=== PATIENT | female | born 1995 | race Caucasian/White ===

== ENCOUNTER 2023-12-14 15:16 | Emergency (ER) | payer MEDICAID ==
[2023-12-14 15:55] LABS: BASOPHILS % (AUTO) 0.3 %; EOSINOPHILS # (AUTO) 0.4 10^3/uL (0.0-0.7); EOSINOPHILS % (AUTO) 5.2 %; HCT - HEMATOCRIT 41.3 % (37.0-47.0); HGB - HEMOGLOBIN 13.6 g/dL (12.0-16.0); LYMPHOCYTES # (AUTO) 0.6 10^3/uL (1.5-3.5); LYMPHOCYTES % (AUTO) 9.1 %; MEAN CORPUSCULAR HEMOGLOBIN 30.2 pg (27.0-31.0); MEAN CORPUSCULAR HGB CONC 32.9 g/dL (32.0-36.0); MEAN CORPUSCULAR VOLUME 91.8 fL (81.0-99.0); MEAN PLATELET VOLUME 10.1 fL (7.9-10.8); MONOCYTES # (AUTO) 0.7 10^3/uL (0.0-1.0); MONOCYTES % (AUTO) 9.7 %; NEUTROPHILS % (AUTO) 75.6 %; PLT - PLATELET COUNT 301 10^3/uL (130-450); RED CELL DISTRIBUTION WIDTH 12.6 % (12.0-15.0); WHITE BLOOD COUNT 6.7 x10^3/uL (4.8-10.8)
[2023-12-14 16:22] LABS: MAGNESIUM 1.9 mg/dL (1.7-2.3)
[2023-12-14 16:28] LABS: ALBUMIN/GLOBULIN RATIO 2.2 (1.0-2.2); BILIRUBIN,TOTAL 0.7 mg/dL (0.2-1.0); CALCIUM 9.9 mg/dL (8.5-10.3); CREATININE 0.8 mg/dL (0.6-1.3); POTASSIUM 3.9 mmol/L (3.5-4.5); TOTAL PROTEIN 7.3 g/dL (6.4-8.9)
--- NOTE | 2023-12-14 16:43 | ED Physician Documentation ---
PD HPI SYNCOPE - Stated complaint Stated Complaint: DIZZY,CONFUSION - Chief complaint Chief Complaint: General - History obtained from History obtained from: Patient - History of Present Illness Witnessed: Unwitnessed Timing - onset: How many minutes ago (30), Today Duration: Minutes Preceding symptoms: Nausea / vomiting, Light headed (she was driving her car and started to feel lightheaded, nauseated, heart felt racing, and her hands felt cold and numb (both sides). This continued several minutes. She pulled off road. No injury. Here for evaluation. Has not developed headache (like if were an aura pre migraine).). No: Headache, Chest pain Associated symptoms: Diaphoresis, Nausea / vomiting. No: Seizure, Headache, Vision changes, Chest pain, Dyspnea, Abdominal pain Contributing factors: No: Recent med change, Decreased PO intake, Noxious stimulae Similar symptoms before: Has not had sx before (does get migraines with aura but does not feel typical aura and has not developed THOMAS. Has MS but this is not typical symptoms for her. Otherwise has felt okay recently.) Review of Systems Constitutional: denies: Fever, Chills Nose: denies: Rhinorrhea / runny nose, Congestion Throat: denies: Sore throat Respiratory: denies: Cough GI: reports: Nausea. denies: Vomiting, Diarrhea Neurologic: reports: Near syncope. denies: Focal weakness, Syncope PD PAST MEDICAL HISTORY - Past Medical History Past Medical History: Yes Cardiovascular: None Respiratory: None Neuro: Multiple sclerosis Endocrine/Autoimmune: None - Past Surgical History Past Surgical History: No - Present Medications Home Medications: Ambulatory Orders Medication Instructions Recorded Confirmed Amantadine [Symmetrel] 100 mg PO DAILY 12/14/23 12/14/23 Dextroamphetamine/Amphetamine 15 mg PO TID 12/14/23 12/14/23 [Adderall 15 mg Tablet] Fingolimod HCl [Fingolimod] 0.5 mg PO DAILY 12/14/23 12/14/23 Gabapentin [Neurontin] 200 mg PO HS 12/14/23 12/14/23 LORazepam [Ativan] 1.5 mg PO HS 12/14/23 12/14/23 Levomilnacipran HCl [Fetzima] 80 mg PO DAILY 12/14/23 12/14/23 Propranolol [Inderal] 10 mg PO PRN PRN 12/14/23 12/14/23 Rizatriptan Benzoate [Rizatriptan] 10 mg PO PRN PRN 12/14/23 12/14/23 Spironolactone [Aldactone] 50 mg PO BID 12/14/23 12/14/23 - Allergies Allergies/Adverse Reactions: Allergies Allergy/AdvReac Type Severity Reaction Status Date / Time No Known Drug Allergies Allergy Verified 12/14/23 15:28 - Social History Does the pt smoke?: No Smoking Status: Never smoker Does the pt drink ETOH?: Yes Substance Use and Type: Marijuana PD ED PE NORMAL - Vitals Vital signs reviewed: Yes - General General: Alert and oriented X 3, No acute distress, Well developed/nourished - Neck Neck: Supple, no meningeal sign, No adenopathy - Cardiac Cardiac: RRR, No murmur - Respiratory Respiratory: No respiratory distress, Clear bilaterally - Abdomen Abdomen: Soft, Non tender - Derm Derm: Normal color, Warm and dry - Extremities Extremities: Normal ROM s pain, No edema, No calf tenderness / cord - Neuro Neuro: Alert and oriented X 3, No motor deficit, Normal speech Results - Vitals Vitals: Vital Signs - 24 hr 12/14/23 12/14/23 15:21 17:29 Temperature 36.5 C Heart Rate 84 74 Respiratory 16 18 Rate Blood Pressure 142/86 H 123/83 H O2 Saturation 100 98 Oxygen O2 Source Room air - EKG (time done) 15:57 EKG releavant findings:: EKG personally interpreted by author of this note. Relevant findings are: Rate: Rate (enter#) (89) Rhythm: NSR [place]: Normal Intervals: Normal [place] QRS: Normal Ischemia: Normal ST segments. No: ST elevation c/w ischemia, ST depression Compare to prior EKG: Old EKG unavailable - Labs Labs: Laboratory Tests 12/14/23 12/14/23 12/14/23 15:40 15:40 15:49 WBC 6.7 RBC 4.50 Hgb 13.6 Hct 41.3 MCV 91.8 MCH 30.2 MCHC 32.9 RDW 12.6 Plt Count 301 MPV 10.1 Neut # (Auto) 5.0 Lymph # (Auto) 0.6 L Dickson # (Auto) 0.7 Eos # (Auto) 0.4 Baso # (Auto) 0.0 Absolute Nucleated RBC 0.00 Nucleated RBC % 0.0 Sodium Potassium Chloride Carbon Dioxide Anion Gap BUN Creatinine Estimated GFR (MDRD) Glucose Calcium Magnesium Total Bilirubin AST ALT Alkaline Phosphatase Total Protein Albumin Globulin Albumin/Globulin Ratio TSH Urine Color YELLOW Urine Clarity CLEAR Urine pH 7.5 Ur Specific [place] <=1.005 Urine Protein NEGATIVE Urine Glucose (UA) NEGATIVE Urine Ketones NEGATIVE Urine Occult Blood NEGATIVE Urine Nitrite NEGATIVE Urine Bilirubin NEGATIVE Urine Urobilinogen 0.2 (NORMAL) Ur Leukocyte Esterase NEGATIVE Ur Microscopic Review NOT INDICATED Urine Culture Comments NOT INDICATED Urine HCG, Qual NEGATIVE 12/14/23 12/14/23 15:49 15:49 WBC RBC Hgb Hct MCV MCH MCHC RDW Plt Count MPV Neut # (Auto) Lymph # (Auto) Dicks[place] # (Auto) Eos # (Auto) Baso # (Auto) Absolute Nucleated RBC Nucleated RBC % Sodium 136 Potassium 3.9 Chloride 99 L Carbon Dioxide 30 Anion Gap 7.0 BUN 8 Creatinine 0.8 Estimated GFR (MDRD) 85 L Glucose 103 Calcium 9.9 Magnesium 1.9 Total Bilirubin 0.7 AST 18 ALT 17 Alkaline Phosphatase 94 Total Protein 7.3 Albumin 5.0 Globulin 2.3 Albumin/Globulin Ratio 2.2 TSH 1.73 Urine Color Urine Clarity Urine pH Ur Specific [place] Urine Protein Urine Glucose (UA) Urine Ketones Urine Occult Blood Urine Nitrite Urine Bilirubin Urine Urobilinogen Ur Leukocyte Esterase Ur Microscopic Review Urine Culture Comments Urine HCG, Qual PD Medical Decision Making - ED course Complexity details: reviewed results (normal CBC, glucose, lytes, UA and neg HCG. ECG without ectopy. BP is good. ), considered differential (cdescribes pre- syncope type synmptoms. Not clear the cause. Normal ECG here but states it felt like heart racing. If recurring episodes, then consider [place]iop[place] through PMD. Does not sound like MS type symptoms. Could be migraine with aura but no THOMAS at this time. I feel she is stable and safe for d/c), d/w patient Departure - Departure Disposition: 01 Home, Self Care Clinical Impression: Light-headed feeling, Near syncope, Multiple sclerosis Condition: Stable Record reviewed to determine appropriate education?: Yes Instructions: ED Near Syncope Unkn Comments: It is unclear the cause of your symptoms. Your basic blood tests including blood count and chemistry panel are normal. Your heart rate and blood pressure and oxygen level are good. I added on a thyroid screen to the blood in the labs. The results will come back in a little while and I can call you if it is abnormal. For lack of clear diagnosis, I am calling it near syncope given some of the symptoms you described. Alternatives would be atypical aura without migraine or other causes. At this point continue usual medicines and stay well-hydrated. See if you have recurring episodes or other symptoms that develop later or in the next day or 2 such as flulike or such. Otherwise if this is a single episode without any repeated occurrences then no further workup needed. Forms: PCP List Discharge Date/Time: 12/14/23 17:29
[2023-12-14 16:47] LABS: BILIRUBIN,URINE NEGATIVE (NEGATIVE); GLUCOSE, URINE (UA) NEGATIVE (NEGATIVE); KETONES,URINE (UA) NEGATIVE (NEGATIVE); LEUKOCYTE ESTERASE, URINE NEGATIVE (NEGATIVE); NITRITE,URINE NEGATIVE (NEGATIVE); OCCULT BLOOD,URINE NEGATIVE (NEGATIVE); PH,URINE 7.5 PH (5.0-7.5); PROTEIN,URINE NEGATIVE (NEGATIVE); UROBILINOGEN,URINE 0.2 (NORMAL) E.U./dL (NORMAL)
[2023-12-14 16:51] LABS: CLARITY,URINE CLEAR (CLEAR)
[2023-12-14 17:28] LABS: HCG UR QUAL NEGATIVE
[2023-12-14 17:35] VITALS: BP 123/83; O2SAT 98
== END 2023-12-14 17:29 | disposition home or self-care (01) ==
LOC: ED 15:16
DX: G35 Multiple sclerosis (principal); Z79.899 Other long term (current) drug therapy; R42 Dizziness and giddiness; R55 Syncope and collapse
CPT/HCPCS: 36415; 80053; 81001; 81003; 81025; 83735; 84443; 85025; 87086; 93005; 99283; 99284